=== PATIENT | female | born 1985 | race Caucasian/White ===

== ENCOUNTER 2017-09-05 16:55 | Emergency (ER) | payer OTHER ==
[2017-09-05 17:02] VITALS: TEMP 98.2
--- NOTE | 2017-09-05 17:22 | EDPHY ---
H & P Time Seen by Provider: 09/05/17 17:04 HPI/ROS: CHIEF COMPLAINT: Fainted at work HISTORY OF PRESENT ILLNESS: 32-year-old woman was getting over a cold which she had a week ago. Normally does need very much in today just had a piece of toast and jam. Normally does not drink very much water and today at about half a L. She was at work at 4:30 p.m. Standing up getting some more water when she felt dizzy lightheaded and fell down in a narrow space in the restaurant hitting the wall with her right forehead. Was only out for couple of seconds, no seizure activity. Mild right-sided forehead pain and some nausea but no vomiting. She was sweaty and clammy immediately afterwards but now feels basically back to normal except for the mild forehead pain. REVIEW OF SYSTEMS: Eye: no change in vision or double vision ENT: no sore throat or hearing loss Cardiac: No chest pain Pulmonary: Not short of breath Abdomen: no vomiting, diarrhea, abdominal pain Musculoskeletal: No back or neck pain or extremity injury Skin: No laceration Neuro: no headache, right forehead pain over the orbit only Constitutional: no fever : no urinary symptoms, no vaginal bleeding or A comprehensive 10 point review of systems is otherwise negative aside from elements mentioned in the history of present illness. PAST MEDICAL HISTORY: On Nexplanon otherwise negative Family history: Negative for sudden cardiac or venous thromboembolism, positive for colon cancer in her father Social history: Works at a restaurant as noted above General Appearance: Alert and conversant, cooperative. Eyes: No scleral icterus. Extraocular motion intact, pupils 3 mm and reactive. ENT, Mouth: Normal mucous membranes. No tongue laceration or abrasion and no hemotympanum. She has very mild swelling and redness over the right orbit on the forehead but no other facial or head swelling or tenderness. No crepitus there. Respiratory: Normal respiratory effort, breath sounds equal, lungs are clear to auscultation. Cardiovascular: Regular rate and rhythm. Gastrointestinal: Abdomen is soft and non tender. Neurological: Alert, face symmetric, normal motor and sensory in extremities. Ambulatory, no pronator drift. Speech is fluent. Skin: Warm and dry, no rashes. Musculoskeletal: No cervical thoracic or lumbar spine tenderness. Psychiatric: Not agitated. Emergency Department course/MDM: Likely vasovagal, with a combination of chronically decreased oral intake and recent illness. Considered including but not limited to dysrhythmia, seizure, anemia, metabolic abnormality. EKG and i-STAT, discharge if negative. Smoking Status: Never smoked Constitutional: Initial Vital Signs Temperature (C) 36.8 C 09/05/17 16:58 Heart Rate 73 09/05/17 16:58 Respiratory Rate 18 09/05/17 16:58 Blood Pressure 113/72 09/05/17 16:58 O2 Sat (%) 98 09/05/17 16:58 O2 Delivery Mode Room Air Allergies/Adverse Reactions: No Known Allergies Allergy (Unverified 09/05/17 16:57) Home Medications: Medication Instructions Recorded NK [No Known Home Meds] 09/05/17 Medical Decision Making - Diagnostics EKG Interpretation: 12-lead EKG interpreted by me; official reading is in trace master. My interpretation is sinus rhythm, normal intervals. Differential Diagnosis: Differential diagnosis considered for syncope including but not limited to vasovagal syncope, arrhythmia, dehydration, and blood loss. - Data Points Laboratory Results: 09/05/17 17:27 POC Hgb 14.6 gm/dL gm/dL (12.6-16.3) POC Hct 43 % % (38-47) POC Sodium 142 mEq/L mEq/L (135-145) POC Potassium 3.6 mEq/L mEq/L (3.3-5.0) POC Chloride 102 mEq/L mEq/L (97-110) POC BUN 9 mg/dL mg/dL (7-23) POC Creatinine 0.7 mg/dL mg/dL (0.6-1.0) POC Glucose 84 mg/dL mg/dL (70-100) Point of Care Test Results: 09/05/17 17:27 POC Sodium 142 POC Potassium 3.6 POC Chloride 102 POC BUN 9 POC Creatinine 0.7 POC Glucose 84 Departure - Departure Disposition: Home, Routine, Self-Care Clinical Impression: Vasovagal syncope, Right forehead contusion Condition: Good Instructions: Syncope (ED), Head Injury (ED) Additional Instructions: No work today. Okay tomorrow if you feel normal. Increase oral fluid intake. Normal blood sugar, not anemic, normal sodium and potassium. EKG normal. Referrals: Work Comp Ref/Restrictions [Outside] - As per Instructions
--- NOTE | 2017-09-05 17:27 | CPEKG ---
Heart Rate: 67 RR Interval: 896 P-R Interval: 140 QRSD Interval: 94 QT Interval: 428 QTC Interval: 452 P [place]: 84 QRS [place]: 36 T Wave [place]: 36 EKG Severity - NORMAL ECG - EKG Impression: SINUS RHYTHM Electronically Signed By: Reese Dias 05-Sep-2017 17:35:42
[2017-09-05 18:45] VITALS: BP 111/70; PULSE 72; RESP 16; O2SAT 99
== END 2017-09-05 18:43 | disposition home or self-care (01) ==
DX: S00.83XA Contusion of other part of head, initial encounter (principal); R55 Syncope and collapse; W01.198A Fall on same level from slipping, tripping and stumbling with subsequent striking against other object, initial encounter; Y92.69 Other specified industrial and construction area as the place of occurrence of the external cause; Y99.0 Civilian activity done for income or pay; Y93.89 Activity, other specified
CPT/HCPCS: 82947-QW